=== PATIENT | male | born 1975 | race Caucasian/White ===

== ENCOUNTER 2020-11-12 10:52 | Emergency (ER) | payer OTHER, BC ==
[2020-11-12] MEDS ORDERED: Boostrix 0.5 ML (Tdap) VIAL ONE (11:24)
[2020-11-12] MEDS ORDERED: Ibuprofen 800 MG TAB ONE (11:24)
[2020-11-12] MEDS ORDERED: Bacitracin 1 PK ONE (11:51)
== END 2020-11-12 12:11 | disposition home or self-care (01) ==
LOC: MADERS 10:52 → EDBD 10:52 → MADERS 12:11
DX: S20.211A Contusion of right front wall of thorax, initial encounter (principal); S50.812A Abrasion of left forearm, initial encounter; V89.2XXA Person injured in unspecified motor-vehicle accident, traffic, initial encounter
CPT/HCPCS: 71046; 90471; 90715